=== PATIENT | male | born 2000 | race Caucasian/White ===

== ENCOUNTER 2020-02-27 10:18 | Emergency (ER) | payer MEDICAID ==
[2020-02-27] MEDS ORDERED: Tetracaine HCl/PF 0.5% 4 ML Bottle EYEBOTH ONE (10:51)
--- NOTE | 2020-02-27 11:19 | EDM.PDOC ---
ED HPI GENERAL MEDICAL PROBLEM - General Chief Complaint: Eye Problems Stated Complaint: SOMETHING IN LT EYE Time Seen by Provider: 02/27/20 11:27 Source of Information: Reports: Patient History Limitations: Reports: No Limitations - History of Present Illness INITIAL COMMENTS - FREE TEXT/NARRATIVE: pt arrived from the [place] site of the [facility] on [place]. He had walked by a fan where sheet rock was being sanded and feels like something got blown in the left eye. Th eye is very irritated and he feels like something may have gotten in the eye. Onset: Today, Sudden Duration: Hour(s): Location: Reports: Face Associated Symptoms: Reports: No Other Symptoms Left Eye Pain Score (Numeric/FACES): 7 - Related Data Allergies Allergy/AdvReac Type Severity Reaction Status Date / Time No Known Allergies Allergy Verified 02/27/20 10:36 Home Meds: Home Meds Venlafaxine [Effexor] 37.5 mg PO DAILY 02/27/20 [History] Past Medical History Respiratory History: Reports: Other (See Below) Neurological History: Reports: Concussion Psychiatric History: Reports: Anxiety, Depression - Past Surgical History Head Surgeries/Procedures: Reports: None Respiratory Surgical History: Reports: None Neurological Surgical History: Reports: None Dermatological Surgical History: Reports: None Social & Family History - Tobacco Use Smoking Status *Q: Never Smoker Second Hand Smoke Exposure: No - Caffeine Use Caffeine Use: Reports: Energy Drinks - Recreational Drug Use Recreational Drug Use: Yes Drug Use in Last 12 Months: Yes Recreational Drug Type: Reports: Marijuana/Hashish Recreational Drug Use Frequency: Socially ED ROS GENERAL - Review of Systems Review Of Systems: See Below Constitutional: Reports: No Symptoms HEENT: Reports: Other ( acute left eye pain. ) Respiratory: Reports: No Symptoms Cardiovascular: Reports: No Symptoms Endocrine: Reports: No Symptoms GI/Abdominal: Reports: No Symptoms : Reports: No Symptoms Musculoskeletal: Reports: No Symptoms Skin: Reports: No Symptoms Neurological: Reports: No Symptoms ED EXAM GENERAL W FULL EYE - Physical Exam Exam: See Below Text/Narrative:: pt arrived with iritation and pain in the left eye. He has alot of watering and he is very lite sensitive. He feels like he has something in the lower lid area. Exam Limited By: No Limitations General Appearance: Alert, Mild Distress, Other ( pupils are equal an reactive. The left eye is injected an uncomfortable. He had no foreign body that could be visualized. He had no markedchnge in visual acuity. Tetracine was inserted in the left eye. It was stained athere was evidence of a outer lower conjuntivial abrasion. There appeared to be nothing over the cornea. ) Nose: Normal Inspection Throat/Mouth: Normal Inspection Head: Atraumatic Neck: Normal Inspection Course - Vital Signs Last Recorded V/S: Last Vital Signs Temp 36.8 C 02/27/20 10:43 Pulse 79 02/27/20 10:43 Resp 16 02/27/20 10:43 BP 149/84 H 02/27/20 10:43 Pulse Ox 97 02/27/20 10:43 - Orders/Labs/Meds Meds: Medications Discontinued Medications Generic Name Dose Route Start Last Admin Trade Name Freq PRN Reason Stop Dose Admin Tetracaine HCl 1 ml 02/27/20 10:51 02/27/20 10:57 Tetracaine 0.5% Steri-Unit [place] EYEBOTH 02/27/20 10:52 1 ml ASDIRECTED ONE Administration Departure - Departure Time of Disposition: 11:13 Disposition: Home, Self-Care 01 Condition: Fair Clinical Impression: Conjunctival abrasion - Discharge Information Instructions: Corneal Abrasion, [id number] Referrals: PCP,None [Primary Care Provider] - Forms: ED Department Discharge Care Plan Goals: dark glasses to avoid lite exposure, gentamycin eye drops tid for 4 days, tylenol and motrin for pain Sepsis Event Note (ED) - Evaluation Sepsis Screening Result: No Definite Risk
== END 2020-02-27 11:27 | disposition home or self-care (01) ==
LOC: JP.ED 10:18
DX: S05.02XA Injury of conjunctiva and corneal abrasion without foreign body, left eye, initial encounter (principal); F41.9 Anxiety disorder, unspecified; F32.9 Major depressive disorder, single episode, unspecified; Z79.899 Other long term (current) drug therapy; X58.XXXA Exposure to other specified factors, initial encounter
CPT/HCPCS: 99283